=== PATIENT | male | born 1960 | race Caucasian/White ===

== ENCOUNTER 2018-09-12 06:48 | Outpatient (CLI) | payer OTHER | END 2018-09-12 23:59 | disposition home or self-care (01) | LOC: RAD 06:48 | PROVIDERS: ATTEND Nurse Practitioner Family | DX: R13.19 Other dysphagia (principal) | CPT/HCPCS: 74220 ==

== ENCOUNTER → 2019-11-01 | Outpatient (CLI) | payer OTHER ==
[~2019-11-01] MED LIST: CBD SL; DULO30CA2 PO; GLUCOSE TABS; NOVOLOG SC; PREG75CA PO
== END | disposition home or self-care (01) ==
LOC: STAR 14:31
PROVIDERS: ATTEND Neurological Surgery
DX: Z01.812 Encounter for preprocedural laboratory examination (principal); Z20.828 Contact with and (suspected) exposure to other viral communicable diseases; M48.061 Spinal stenosis, lumbar region without neurogenic claudication
CPT/HCPCS: 36415; 87635; 93005